=== PATIENT | female | born 1990 | race Two or more races ===

== ENCOUNTER 2023-09-10 07:15 | Emergency (ER) | payer MEDICAID, OTHER ==
[~2023-09-10] VITALS: Ht 162.6 cm; Wt 79.8 kg
[2023-09-10 07:54] VITALS: BP 110/75; PULSE 130; RESP 20; O2SAT 97
[2023-09-10] MEDS ORDERED: ACETAMINOPHEN 500 MG TAB PO ONE (08:00)
[2023-09-10 08:50] LABS: COVID19 ANTIGEN SOFIA FIA NEGATIVE (NEGATIVE)
[2023-09-10 08:53] LABS: Rapid Influenza A Negative (Negative); Rapid Influenza B Negative (Negative)
[2023-09-10] MEDS ORDERED: LORA10CA PO (09:18)
[2023-09-10] MEDS ORDERED: BENZ100C97 PO (09:18)
[2023-09-10] MEDS ORDERED: ACET500T58 PO (09:18)
[2023-09-10 09:24] VITALS: TEMP 98.6
== END 2023-09-10 09:24 | disposition home or self-care (01) ==
LOC: ER 07:15
DX: O26.892 Other specified pregnancy related conditions, second trimester (principal); J06.9 Acute upper respiratory infection, unspecified; Z20.822 Contact with and (suspected) exposure to COVID-19; Z3A.20 20 weeks gestation of pregnancy
CPT/HCPCS: 36415; 87426; 87804